=== PATIENT | female | born 1985 | race Caucasian/White ===

== ENCOUNTER 2020-10-30 19:35 | Inpatient (IN) ==
[2020-10-30] MEDS ORDERED: Metoclopramide 10 MG/2 ML VIAL IVP PRN (19:49)
[2020-10-30] MEDS ORDERED: *HR* Nalbuphine 10 MG/ML AMPUL IV PRN (19:49)
[2020-10-30] MEDS ORDERED: Ondansetron 4 MG/2 ML VIAL IVP PRN (19:49)
[2020-10-30] MEDS ORDERED: Naloxone 0.4 MG/ML INJ IVP PRN (19:49)
[2020-10-30] MEDS ORDERED: Famotidine 20 MG/2 ML VIAL IVP PRN (19:49)
[2020-10-30] MEDS ORDERED: Azithromycin 500 MG in 0.9 % Sodium Chloride 250 ML IVPB PRN (19:49)
[2020-10-30] MEDS ORDERED: Ringers Solution, Lactated 1,000 ML IVC SCH (20:00)
[2020-10-30] MEDS ORDERED: miSOPROStoL 25 MCG TABLET PO PRN (20:34)
[2020-10-30 21:02] LABS: Basophils % 0.3 %; Eosinophils # 0.1 K/mcL (0.0-0.6); Eosinophils % 0.9 %; Hematocrit 37.4 % (35.3-44.9); Hemoglobin 11.8 g/dL (11.5-15.4); Lymphocytes # 2.1 K/mcL (0.6-4.6); Mean Corpuscular HGB Conc 31.6 g/dL (31.6-35.5); Mean Corpuscular Hemoglobin 27.2 pg (28.0-33.3); Mean Corpuscular Volume 86.2 fL (83.0-100.0); Monocytes # 0.7 K/mcL (0.0-1.3); Monocytes % 8.4 %; Neutrophils # 5.6 K/mcL (1.6-8.9); Platelet Count 275 K/mcL (140-400); Red Blood Count 4.34 M/mcL (3.82-4.97); Red Cell Distribution Width 14.2 % (11.5-14.5); Segmented Neutrophils % 65.4 %; White Blood Count 8.7 K/mcL (4.3-11.1)
[2020-10-30 21:10] LABS: Protein/Creatinine Ratio,Urine 0.21 mg/mg (0.00-0.20)
[2020-10-30 21:11] LABS: Amphetamine Screen,Urine Negative ng/mL (Cutoff=1000); Barbiturate Screen,Urine Negative ng/mL (Cutoff=200); Benzodiazepines Screen,Urine Negative ng/mL (Cutoff=200); Cannabinoid Screen,Urine Negative ng/mL (Cutoff = 50); Cocaine Screen,Urine Negative ng/mL (Cutoff= 300); Opiate Screen,Urine Negative ng/mL (Cutoff=300); Phencyclidine Screen,Urine Negative ng/mL (Cutoff=25)
[2020-10-30 21:24] LABS: Alanine Aminotransferase 12 Units/L (7-52); Aspartate Amino Transferase 18 Units/L (13-39); BUN/Creatinine Ratio 17 (6-26); Blood Urea Nitrogen 10 mg/dL (6-20); Lactate Dehydrogenase 214 Units/L (140-271); Uric Acid 5.1 mg/dL (2.3-7.6); eGFR For African Americans > 60 (> 60); eGFR For Non-African Americans > 60 (> 60)
[2020-10-30 22:26] LABS: Influenza A PCR Negative (Negative); Influenza B PCR Negative (Negative); Resp. Syncytial Virus PCR Negative (Negative)
[2020-10-30 22:29] LABS: SARS-CoV-2 by PCR (In House) Negative (Negative)
[2020-10-30] MEDS ORDERED: Ropivacaine/PF 0.2% 20 ML VIAL EP ONE (22:36)
[2020-10-30] MEDS ORDERED: EPHEDrine 50 MG/ML VIAL IVP PRN (22:36)
[2020-10-30] MEDS ORDERED: *HR* FentaNYL (PF) 100 MCG/2 ML VIAL EP ONE (22:36)
[2020-10-30] MEDS ORDERED: Epidural Premix (fent/bupiv) 110 ML EP SCH (22:45)
[2020-10-31] MEDS ORDERED: 0.9 % Sodium Chloride 1,000 ML ONE (00:20)
[2020-10-31] MEDS ORDERED: Oxytocin 20 units/ LR 1000 mL 20 UNIT/1,000 ML BAG IVC SCH ×2 (00:30→05:07)
[2020-10-31] MEDS ORDERED: Ropivacaine/PF 0.2% 20 ML VIAL ONE (01:09)
[2020-10-31] MEDS ORDERED: *HR* FentaNYL (PF) 100 MCG/2 ML VIAL ONE (01:09)
[2020-10-31] MEDS ORDERED: Lidocaine 1% 20 ML MDV ONE (04:04)
[2020-10-31] MEDS ORDERED: Measles/Mumps/Rubella Vacc 0.5 ML VIAL SQ PRN (05:07)
[2020-10-31] MEDS ORDERED: Benzocaine/Menthol 56 GM AEROSOL SPRAY TP PRN (05:07)
[2020-10-31] MEDS ORDERED: Lanolin 7 G OINT...G. TP PRN (05:07)
[2020-10-31] MEDS: Acetaminophen 325 MG TABLET PO PRN ×2 (07:44→14:30)
[2020-10-31] MEDS: Prenatal Vit/FA 1 EACH TABLET PO SCH (07:45)
[2020-10-31] MEDS: Ibuprofen 600 MG TABLET PO PRN ×3 (07:45→20:58)
[2020-11-01 05:30] LABS: Basophils % 0.4 %; Eosinophils # 0.3 K/mcL (0.0-0.6); Eosinophils % 2.7 %; Hematocrit 28.7 % (35.3-44.9); Immature Granulocytes % 1.5 % (0-4); Mean Corpuscular HGB Conc 32.4 g/dL (31.6-35.5); Mean Corpuscular Hemoglobin 28.2 pg (28.0-33.3); Mean Platelet Volume 10.2 fL (9.4-12.4); Monocytes # 0.9 K/mcL (0.0-1.3); Monocytes % 8.3 %; Neutrophils # 6.3 K/mcL (1.6-8.9); Platelet Count 209 K/mcL (140-400); Red Cell Distribution Width 14.3 % (11.5-14.5); Segmented Neutrophils % 59.1 %; White Blood Count 10.7 K/mcL (4.3-11.1)
[2020-11-01 05:35] LABS: Hemoglobin 9.3 g/dL (11.5-15.4)
[2020-11-01 05:54] LABS: Alanine Aminotransferase 8 Units/L (7-52); Aspartate Amino Transferase 16 Units/L (13-39); BUN/Creatinine Ratio 12 (6-26); Blood Urea Nitrogen 6 mg/dL (6-20); Lactate Dehydrogenase 166 Units/L (140-271); Uric Acid 4.1 mg/dL (2.3-7.6); eGFR For African Americans > 60 (> 60); eGFR For Non-African Americans > 60 (> 60)
[2020-11-01] MEDS: Ibuprofen 600 MG TABLET PO PRN ×3 (06:19→20:52)
[2020-11-01] MEDS: Acetaminophen 325 MG TABLET PO PRN ×2 (09:06→15:53)
[2020-11-01] MEDS: Prenatal Vit/FA 1 EACH TABLET PO SCH (09:06)
[2020-11-01] MEDS: NIFEdipine XL (24 HR) 30 MG TAB.ER.24 PO SCH (17:28)
[2020-11-02 08:25] VITALS: BP 146/95; PULSE 84; TEMP 98.6; O2SAT 98
[2020-11-02] MEDS: Prenatal Vit/FA 1 EACH TABLET PO SCH (08:26)
[2020-11-02] MEDS: Ibuprofen 600 MG TABLET PO PRN (08:26)
[2020-11-02] MEDS: NIFEdipine XL (24 HR) 30 MG TAB.ER.24 PO SCH (08:26)
== END 2020-11-02 13:30 | disposition home or self-care (01) | DRG 560 ==
LOC: 1NENULAB 19:35 → 1NENUOBS 10-31 06:52
PROVIDERS: ADMIT Registered Nurse; ATTEND Registered Nurse